=== PATIENT | female | born 1980 | race Caucasian/White ===

== ENCOUNTER 2021-01-28 20:04 | Emergency (ER) | payer MEDICAID ==
[~2021-01-28] VITALS: Ht 177.8 cm; Wt 100.0 kg
[2021-01-28] MEDS ORDERED: piperacillin/tazo 4.5gm/100ml 100 ML IV SCH (20:42)
[2021-01-28] MEDS ORDERED: iohexol 300mg/ml 100ml inj. ONE (20:44)
[2021-01-28] MEDS ORDERED: vancomycin/NS 1 GM ADD-VANTAGE 250 ML IV ONE (20:45)
[2021-01-28 21:54] LABS: BASOPHILS # (AUTO) 0.1 X10'3 (0-0.2); BASOPHILS % (AUTO) 0.8 % (0-1); EOSINOPHILS # (AUTO) 0.7 X10'3 (0-0.9); EOSINOPHILS % (AUTO) 9.9 % (0-6); HEMATOCRIT 38.1 % (35.0-45.0); HEMOGLOBIN 12.5 g/dl (12.0-16.0); LYMPHOCYTES % (AUTO) 29.2 % (21-51); MEAN CORPUSCULAR HEMOGLOBIN 29.6 PG (27.0-31.0); MEAN CORPUSCULAR HGB CONC 32.8 g/dL (33.0-36.5); MEAN CORPUSCULAR VOLUME 90.1 FL (78-98); MEAN PLATELET VOLUME 8.5 FL (7.4-10.4); MONOCYTES # (AUTO) 0.8 X10'3 (0-0.9); MONOCYTES % (AUTO) 11.2 % (2-12); NEUTROPHILS # (AUTO) 3.3 X10'3 (1.8-7.7); NEUTROPHILS % (AUTO) 48.9 % (42-75); PLATELET COUNT 231 X10'3 (140-440); RED BLOOD COUNT 4.23 X10'6 (4.20-5.60); RED CELL DISTRIBUTION WIDTH 13.5 % (11.5-14.5); WHITE BLOOD COUNT 6.8 X10'3 (4.5-11.0)
[2021-01-28 22:01] LABS: ALBUMIN 3.2 G/DL (3.4-5.0); ANION GAP 9 (8-16); BLOOD UREA NITROGEN 13 MG/DL (7-18); BUN/CREATININE RATIO 14.6 (6.6-38.0); CALCIUM 8.3 MG/DL (8.5-10.1); CHLORIDE 109 MMOL/L (99-107); CREATININE 0.89 MG/DL (0.40-0.90); GLUCOSE 101 MG/DL (70-104); POTASSIUM 3.5 MMOL/L (3.5-5.1); SODIUM 143 MMOL/L (135-145); TOTAL CARBON DIOXIDE 24.8 MMOL/L (24-32); eGFR 71 ML/MIN
[2021-01-28] MEDS ORDERED: SULF1TAB49 PO (23:50)
[2021-01-28] MEDS ORDERED: CEPH-585 PO (23:50)
[2021-01-29 00:46] VITALS: BP 153/85
== END 2021-01-29 00:49 | disposition home or self-care (01) ==
LOC: ER 20:05
DX: L02.413 Cutaneous abscess of right upper limb (principal); Z79.2 Long term (current) use of antibiotics; Z79.899 Other long term (current) drug therapy
CPT/HCPCS: 36415; 73201; 80048; 83605; 85025; 96365; 96366; 96368; 99285; J2543; J3370; Q9967; 96375

== ENCOUNTER 2024-12-28 19:34 | Emergency (ER) | payer MEDICAID ==
[~2024-12-28] VITALS: Ht 177.8 cm; Wt 127.3 kg
--- NOTE | 2024-12-28 20:17 | Physician Documentation ---
History of Present Illness ~ Chief Complaint: Bite-insect Stated Complaint: BEE STING SWELLING OF THE FACE Time Seen by MD: 20:11 HPI This 44-year-old female that presents to the emergency room after being stung by yellow jackets multiple times yesterday approximately 24 hours ago. Patient woke up with her face significantly swollen her eyes swollen shut she has several other very edematous areas where she was stung went to the upper arm the other to her right hand. Patient denies any difficulty swallowing or airway tightness. Patient denies allergy to bees or wasps reports that she has had heightened responses when stung in the past. Tetanus within 5 years?: No Medication Reconciliation Allergies: Coded Allergies: No Known Allergies (Unverified , 01/28/21) Past Medical History Past Medical History: No Pertinent History Past Surgical History: noncontributory Lives with: Spouse Lives In: Home Review of Systems ROS As stated above in the HPI, otherwise all systems are reviewed and negative. Physical Exam Vital Signs: Temperature: 98.0, Heart Rate: 92, Respiratory Rate: 16, BP: 153/109, Pulse Oximetry: 97, Weight: 127.270 Oxygen Flow Rate: 0 Physical Exam VITALS: Reviewed and as above. GENERAL: Alert, no apparent distress. HEENT: Normocephalic, atraumatic, PERRL, EOMI, dry mucosa, significant edema and erythema noted to the right eye and cheek, moderate chemosis present in the right eye RESPIRATORY: Lungs clear, normal breath sounds, no respiratory distress. CHEST: No accessory muscle use, no retractions CV: Regular rate, rhythm, no edema, no murmur, No: JVD GI: Soft, non-tender, bowels sounds present, no rebound, guarding, or rigidity BACK: No CVA tenderness, or swelling MUSCULOSKELETAL No deformities, no edema SKIN: Warm and dry, erythema and swelling noted to the upper right arm erythema and swelling noted to the right hand NEURO: Oriented x4, No motor or sensory deficit PSYCH: Normal mood and affect, no agitation Progress Results/Orders Results/Orders Orders - DEEJAY HAWKINS Ct Facial Bones/Soft Tissue (12/28/24 20:21) Clindamycin 300mg/D5w 50ml (Clindamycin (12/28/24 21:55) Completed Orders - SHRUTHI,DEEJAY A [employer]PRESENT[employer]IVE [employer] Methylprednisolone Sod Succ (Solumedrol (12/28/24 20:10) Famotidine Tablet (Pepcid Tablet) (12/28/24 20:10) Diphenhydramine Inj (Benadryl Inj.) (12/28/24 20:10) Ct Facial Bones/Soft Tissue (12/28/24 20:21) Medications Received in ER Medications (Trade) Dose Ordered Sig/Ravi Route PRN Reason Start Time Stop Time Status Last Admin Dose Admin (SoluMEDROL 125mg inj) 125 mg ONCE ONCE IM 12/28/24 20:10 12/28/24 20:12 DC 12/28/24 21:01 125 MG (Pepcid tablet) 20 mg ONCE ONCE PO 12/28/24 20:10 12/28/24 20:12 DC 12/28/24 21:01 20 MG (Benadryl inj.) 25 mg ONCE ONCE IM 12/28/24 20:10 12/28/24 20:12 DC 12/28/24 21:01 25 MG Clindamycin HCl/ Dextrose 50 ml @ 100 mls/hr Q6H IV 12/28/24 21:55 12/28/24 22:45 100 MLS/HR Vital Signs 12/28/24 19:44 Temp 98.0 Pulse 92 Resp 16 B/P (MAP) 153/109 Pulse Ox 97 O2 Flow Rate 0 Medical Decision Making Findings This patient who presents with edema and erythema with an infectious process secondary to bee or hornet sting. History and exam findings not consistent with dangerous etiologies of rash such as SJS/TEN, or secondary dangerous causes such as petechial rashes from thrombocytopenia or rickettsial infections. Rash does not appear urticarial with no signs of anaphylaxis either. Plan at this time is to treat with antihistamine, steroid and antibiotics. First dose of clindamycin given here in IV form in the emergency department. We will re-evaluate patient. Patient re-evaluated. No additional spread at this time. Patient is comfortable being discharged understands education and instructions provided for need to return to an emergency department and need to follow up with her primary care provider. Please take prescribed antibiotic as directed. Please take Benadryl 25-50 mg prior to bed couple of days in an effort to help reduce the histamine response. Differential Dx:Considerations: Include: Abrasion, Allergic reaction, An aphylaxis, Cellulitis, Contusion, Fracture, Hematoma, Insect envenomation, Laceration, Neurovascular injury, Punture wound, Retained foreign body, Urticaria, Other Differential Dx:Considerations: Include: Abrasion, Allergic reaction, Anaphylaxis, Cellulitis, Contusion, Fracture, Hematoma, Insect envenomation, Laceration, Neurovascular injury, Punture wound, Retained foreign body, Urticaria, Other Departure Impression: Primary Impression: Insect bites Additional Impressions: Cellulitis Edema Erythema Condition: Stable Discharge Instructions: Insect Bite, Adult, [id number], Cellulitis, Adult Additional Instructions: This patient who presents with edema and erythema with an infectious process secondary to bee or hornet sting. History and exam findings not consistent with dangerous etiologies of rash such as SJS/TEN, or secondary dangerous causes such as petechial rashes from thrombocytopenia or rickettsial infections. Rash does not appear urticarial with no signs of anaphylaxis either. Plan at this time is to treat with antihistamine, steroid and antibiotics. First dose of clindamycin given here in IV form in the emergency department. We will re-evaluate patient. Discussed this patient with my attending. Patient re-evaluated. No additional spread at this time. Patient is comfortable being discharged understands education and instructions provided for need to return to an emergency department and need to follow up with her primary care provider. Please follow up with her primary care provider. Please return to the emergency department if you have any visual changes in that right eye increased swelling increased redness fevers lymphatic spread to any areas, difficulty swallowing airway involvement or any other concerning symptoms. Please take prescribed antibiotic as directed. Please take Benadryl 25-50 mg prior to bed couple of days in an effort to help reduce the histamine response. Differential Dx:Considerations: Include: Abrasion, Allergic reaction, A naphylaxis, Cellulitis, Contusion, Fracture, Hematoma, Insect envenomation, Laceration, Neurovascular injury, Punture wound, Retained foreign body, Urticaria, Other. Referrals: NO PRIMARY CARE PROVIDER (PCP) Prescriptions Clindamycin HCl (Clindamycin HCl) 300 Mg Capsule 1 CAP PO Q8H for 10 Days, #30 CAP Prov: DEEJAY HAWKINS 12/28/24 Education Educated: Patient Educated regarding: diagnosis, treatment, need for follow up Signature Scribe Signature: A Attestation: Scribed for Deejay Hawkins by AUSTIN Beckett . 12/28/24 23:04 DEEJAY HAWKINS Dec 28, 2024 20:17
--- NOTE | 2024-12-28 20:59 | RADIOLOGY REPORT ---
CLINICAL HISTORY: Evaluation of significant facial edema to the right side of the face TECHNIQUE: CT exam of the facial bones was performed without intravenous contrast. This exam was perf ormed according to our departmental dose optimization program. Up-to-date CT equipment and radiation dose reduction techniques are utilized as appropriate. CTDI 54.5 DLP 1038.5 COMPARISON: None FINDINGS: There is extensive right periorbital and cheek soft tissue swelling with bruising And likely hematoma formation. No underlying acute maxillofacial fracture seen. The globes and atrial ocular muscles are symmetric. Period of the paranasal sinuses demonstrate mild right mastery sinus because of thickening. IMPRESSION: Extensive right periorbital and chief soft tissue swelling with bruising and likely hematoma formatio n. No underlying acute maxillofacial fracture seen.
[2024-12-28] MEDS: clindamycin 300mg/D5W 50mL 50 ML IV SCH (22:45)
[2024-12-28] MEDS ORDERED: CLIN300C54 PO (23:04)
[2024-12-28 23:21] VITALS: BP 150/99; PULSE 90; RESP 18; TEMP 98.6; O2SAT 99
== END 2024-12-28 23:25 | disposition home or self-care (01) ==
LOC: ER 19:35
DX: L03.211 Cellulitis of face (principal); R60.9 Edema, unspecified; L53.8 Other specified erythematous conditions; W57.XXXA Bitten or stung by nonvenomous insect and other nonvenomous arthropods, initial encounter; Y93.89 Activity, other specified; Y92.89 Other specified places as the place of occurrence of the external cause; Y99.8 Other external cause status
CPT/HCPCS: 70486; 96365; 96372; 99285; J1200; J2919; J3490